=== PATIENT | female | born 1935 | race Caucasian/White ===

== ENCOUNTER 2016-12-01 22:24 | Emergency (ER) | payer OTHER ==
[~2016-12-01] VITALS: Ht 154.9 cm; Wt 53.0 kg
[~2016-12-01 22:24] MED LIST: ATEN50TA PO; LEVE500T26 PO
[2016-12-01 22:29] VITALS: Ht 154.9 cm; Wt 53.0 kg
[2016-12-01] MEDS ORDERED: LEVE500T13 PO (23:01)
[2016-12-01] MEDS ORDERED: CIPR1TAB11 PO (23:03)
[2016-12-01 23:45] LABS: HEMATOCRIT 35.3 % (37-47); MEAN CELL VOLUME 94.9 fL (80-100); MEAN CORPUSCULAR HGB CONC 33.7 g/dl (32-36); MEAN PLATELET VOLUME 9.3 fL (7.4-10.4); PLATELET COUNT 112 K/uL (130-400); RED BLOOD COUNT 3.72 M/uL (4.2-5.4); WHITE BLOOD COUNT 7.36 K/uL (4.8-10.8)
[2016-12-01 23:46] VITALS: TEMP 37.3
[2016-12-02 00:02] LABS: PROTHROMBIN TIME (PATIENT) 10.8 SECONDS (9.0-12.0)
[2016-12-02 00:10] LABS: ALT/SGPT 41 U/L (12-78); BLOOD UREA NITROGEN 28 mg/dl (7-18); BUN/CREATININE RATIO 18.3 (10-20); CALCIUM 8.3 mg/dl (8.5-10.1); CARBON DIOXIDE 25 mmol/L (21-32); CHLORIDE 104 mmol/L (98-107); GLUCOSE 97 mg/dl (70-99); POTASSIUM 3.6 mmol/L (3.5-5.1); SODIUM 137 mmol/L (136-145)
[2016-12-02 00:19] LABS: ALKALINE PHOSPHATASE 83 U/L (45-117); AST/SGOT 68 U/L (15-37)
[2016-12-02 00:19] LABS: MANUAL MICROSCOPIC REQUIRED? YES; REVIEW REQ? NO; SULFASALICYLIC ACID NEG (NEG); URINE APPEARANCE CLEAR (CLEAR); URINE COLOR RED-ORANGE; URINE SPECIFIC GRAVITY 1.026 (1.000-1.030)
[2016-12-02] MEDS ORDERED: SODIUM CHLORIDE 0.9% 500ML 500 ML IV STA (00:22)
[2016-12-02 00:25] LABS: URINE BACTERIA NEG (NEG); URINE WBC >30 /hpf (0-5); ZZURINE CULT IF INDIC CATH YES
[2016-12-02] MEDS ORDERED: CEFTRIAXONE SOD INJ 1 GM ADDVIAL IV STA (00:39)
[2016-12-02] MEDS ORDERED: CEPH500C2 PO (01:15)
--- NOTE | 2016-12-02 01:16 | EMERGENCY ROOM VISIT NOTE ---
History Report prepared by Genoveva: Jacqueline Wallace Under the Supervision of: Dr. Kevin Brewster M.D. First contact with patient: 22:54 Chief Complaint: FEVER Stated Complaint: FEVER, CHEST TIGHTNESS History of Present Illness The patient is an 81 year old female who presents to the Emergency Room with complaints of an episode of a fever starting this evening. Per the patient's daughter, the patient was complaining of left hip pain, but she notes that she has had problems with the hip before. The daughter states that they took her to [place] [facility] yesterday who stated her hip was fine and believed she has a UTI. She states that they never took a urine sample from the patient because she couldn' t give one. The daughter reports that she called her PCP this evening who put her on Cipro to treat her UTI. The daughter states that she has taken 2 doses of this. She reports that she noticed the patient starting to develop a fever and increased confusion, so she called the PCP again. She reports that the PCP told them to come in. The patient complains of chills, shortness of breath, and walking with a tilt. The patient denies falls, rashes, and the use of blood thinners. The daughter notes that the patient had a history of Dementia and lives with 24 hour care available. Source of History: patient, family Onset: this evening Position: other (global) Quality: other (global) Timing: other (episode) Associated Symptoms: + chills, + SOB, No rash Note: The patient complains of increased confusion and walking with a tilt. The patient denies falls and the use of blood thinners. Review of Systems See HPI for pertinent positives & negatives. A total of 10 systems reviewed and were otherwise negative. Past Medical & Surgical Medical Problems: (1) Dementia Family History No pertinent family history Social History Smoking Status: Never Smoker Drug Use: none Housing Status: assisted living Occupation Status: retired Current/Historical Medications Scheduled Alendronate Sodium (Fosamax), 70 MG PO WK Ascorbic Acid (Vitamin C), 1,000 MG PO DAILY Aspirin (Aspirin Ec), 81 MG PO DAILY Cephalexin Monohydrate (Keflex), 500 MG PO TID Ciprofloxacin Tab (Cipro), 250 MG PO BID Cranberry (Vaccinium Macrocarp (Cranberry), 300 MGPE PO DAILY Cyanocobalamin (Vitamin B-12), 500 MCG PO DAILY Donepezil Hydrochloride (Aricept), 10 MG PO HS Levetiracetam (Keppra), 500 MG PO BID Levothyroxine Sodium (Levothyroxine Sodium), 50 MCG PO QAM Losartan Potassium (Cozaar), 50 MG PO DAILY Memantine (Namenda), 10 MG PO DAILY Multivitamin (Multivitamin), 1 TAB PO DAILY Sertraline (Zoloft), 25 MG PO DAILY Simvastatin (Zocor), 10 MG PO HS Vitamin E (E-400), 400 UNITS PO DAILY Allergies Coded Allergies: Latex (Verified Allergy, Unknown, Unknown, 12/01/16) Source -Medication list Physical Exam Vital Signs Date Time Temp Pulse Resp B/P (MAP) Pulse Ox O2 Delivery O2 Flow Rate FiO2 12/02/16 01:49 76 16 138/65 99 12/02/16 00:55 69 16 140/54 96 Room Air 12/01/16 23:46 37.3 12/01/16 23:31 70 12/01/16 22:29 36.6 83 18 125/73 92 Room Air Physical Exam GENERAL: Patient is well appearing elderly female and in no acute distress. Weak and warm to touch. HEENT: No acute trauma, normocephalic atraumatic, mucous membranes moist, no nasal congestion, no scleral icterus. NECK: No stridor, no adenopathy, no meningismus, trachea is midline. LUNGS: No dyspnea. Clear to auscultation and equal bilaterally. No wheeze, no rhonchi. HEART: Regular rate and rhythm. No murmurs, rubs, gallops appreciated. ABDOMEN: Soft, nontender, bowel sounds positive, no masses appreciated, no peritonitis. BACK: No midline tenderness, no CVA tenderness EXTREMITIES: Normal motion all extremities, no cyanosis, no edema. NEUROLOGIC: Demented, confused (daughter notes confusion is acute change from yesterday), no acute motor or sensory deficits, no focal weakness, cranial nerves grossly intact. SKIN: No rash, no jaundice, no diaphoresis. Medical Decision & Procedures ER Provider Diagnostic Interpretation: X ray results are stated below per my interpretation: Chest: 1 view: No infiltrate, no effusion, normal cardiac border. Pelvic: 1 view: No fracture. No dislocation. Mild osteoporosis. no large effusions appreciated. Laboratory Results 12/01/16 23:30 Red Blood Count 3.72, Mean Corpuscular Volume 94.9, Mean Corpuscular Hemoglobin 32.0, Mean Corpuscular Hemoglobin Concent 33.7, Mean Platelet Volume 9.3 12/01/16 23:30 Test 12/01/16 23:30 12/01/16 23:37 12/01/16 23:45 White Blood Count 7.36 K/uL (4.8-10.8) Red Blood Count 3.72 M/uL (4.2-5.4) Hemoglobin 11.9 g/dL (12.0-16.0) Hematocrit 35.3 % (37-47) Mean Corpuscular Volume 94.9 fL (80-100) Mean Corpuscular Hemoglobin 32.0 pg (25-34) Mean Corpuscular Hemoglobin Concent 33.7 g/dl (32-36) Platelet Count 112 K/uL (130-400) Mean Platelet Volume 9.3 fL (7.4-10.4) RDW Standard Deviation 42.3 fL (36.4-46.3) RDW Coefficient of Variation 12.3 % (11.5-14.5) Neutrophils % (Manual) 27.0 % Lymphocytes % (Manual) 27.0 % Variant Lymphocytes % (manual) 41.6 % Monocytes % (Manual) 3.5 % Eosinophils % (Manual) 0.9 % Neutrophils # (Manual) 1.99 K/uL (1.4-6.5) Total Absolute Neutrophils 1.99 K/uL (1.4-6.5) Lymphocytes # (Manual) 1.99 K/uL (1.2-3.4) Absolute Variant Lymphocytes 3.06 K/uL Total Absolute Lymphocytes 5.05 K/uL (1.2-3.4) Monocytes # (Manual) 0.26 K/uL (0.11-0.59) Eosinophils # (Manual) 0.07 K/uL (0-0.5) Toxic Vacuolation 1+ Prothrombin Time 10.8 SECONDS (9.0-12.0) Prothromb Time International Ratio 1.0 (0.9-1.1) Anion Gap 8.0 mmol/L (3-11) Est Creatinine Clear Calc Drug Dose 21.4 ml/min Estimated GFR () 37.0 Estimated GFR (Non- 31.9 BUN/Creatinine Ratio 18.3 (10-20) Calcium Level 8.3 mg/dl (8.5-10.1) Magnesium Level 2.0 mg/dl (1.8-2.4) Total Bilirubin 0.2 mg/dl (0.2-1) Direct Bilirubin 0.1 mg/dl (0-0.2) Aspartate Amino Transf (AST/SGOT) 68 U/L (15-37) Alanine Aminotransferase (ALT/SGPT) 41 U/L (12-78) Alkaline Phosphatase 83 U/L (45-117) Total Creatine Kinase 106 U/L (26-192) Creatine Kinase MB 1.1 ng/ml (0.5-3.6) Creatine Kinase MB Ratio 1.0 (0-3.0) Troponin I < 0.015 ng/ml (0-0.045) Total Protein 6.7 gm/dl (6.4-8.2) Albumin 2.9 gm/dl (3.4-5.0) Chemistry Specimen Hemolysis Bedside Lactic Acid Venous 1.11 mmol/L (0.90-1.70) Urine Color RED-ORANGE Urine Appearance CLEAR (CLEAR) Urine pH (4.5-7.5) Urine Specific [place] 1.026 (1.000-1.030) Urine Protein NEG (NEG) Urine Glucose (UA) (NEG) Urine Ketones (NEG) Urine Occult Blood (NEG) Urine Nitrite (NEG) Urine Bilirubin (NEG) Urine Urobilinogen (NEG) Urine Leukocyte Esterase (NEG) Urine RBC 5-10 /hpf (0-4) Urine WBC >30 /hpf (0-5) Urine Epithelial Cells 20-30 /lpf (0-5) Urine Bacteria NEG (NEG) Laboratory results as reviewed by me. Medications Administered Medications (Trade) Dose Ordered Sig/Leslie Route Start Time Stop Time Status Last Admin Dose Admin Sodium Chloride 500 ml @ 999 mls/hr Q31M STAT IV 12/02/16 00:22 12/02/16 00:52 DC 12/02/16 00:22 999 MLS/HR Ceftriaxone Sodium (Rocephin Inj) 1 gm NOW STAT IV 12/02/16 00:39 12/02/16 00:40 DC 12/02/16 00:39 1 GM ECG Indication: weakness Rate (beats per minute): 72 Rhythm: normal sinus Findings: no acute ischemic change, no ectopy ED Course 2254: The patient was evaluated in room C4. A complete history and physical exam was performed. 0022: Ordered NSS 500 ml @ 999 mls/hr IV. 0038: I reevaluated the patient. The family is agreeable to IV fluids and awaiting the urine report. They still feel comfortable bringing her home. 0039: Ordered Rocephin Inj 1 gm IV. 0013: Reevaluated the patient. She is much more awake and interactive. The daughter states this is similar to baseline. Discussed results and discharge instructions: They verbalized understanding and agreement. The patient is ready for discharge. Medical Decision Differential: Sepsis, Infectious (UTI/Pneumonia/Meningitis/etc), Metabolic/ Electrolyte Abnormality, Cardiac, Hepatic, Endocrine, Toxicologic, Neurologic, amongst other pathologies entertained. 81 yr old pleasantly demented patient arrives with family after she was more confused today along with fever and concern for UTI. Already empirically started Cipro as outpatient. CXR clear. Pelvis unremarkable (reportedly left hip pain yesterday now gone). EKG unremarkable as is normal trop. Labs consistent with some mild dehydration, thus 500mL NSS given as family admits that they do have trouble keeping her hydrated. After fluids she is much more awake, interactive and in no distress. Questionable UTI via cath thus I feel it is reasonable treating abx. I feel that cipro may not be best choice given renal function and some confusion thus we will switch to Keflex. Family feels very comfortable taking her home and would prefer her note being admitted at this time. As return to baseline with fluids, no history head injury, no neuro deficits, family agrees with holding off on CT head currently. Family well aware they can return at any time if worsening or other concerns. Advised PCP follow up for recheck. Medication Reconcilliation Current Medication List: was personally reviewed by me Blood Pressure Screening Patient's blood pressure: Normal blood pressure Impression Primary Impression: Fever Additional Impressions: Urinary tract infection Dehydration Renal insufficiency, mild Scribe Attestation The scribe's documentation has been prepared under my direction and personally reviewed by me in its entirety. I confirm that the note above accurately reflects all work, treatment, procedures, and medical decision making performed by me. Departure Information Dispostion Home / Self-Care Prescriptions Cephalexin Monohydrate (KEFLEX) 500 Mg Cap 500 MG PO TID, #15 CAP Prov: Kevin Brewster M.D. 12/02/16 Referrals Andrea Arriola PA-C (PCP) Forms HOME CARE DOCUMENTATION FORM, IMPORTANT VISIT INFORMATION Patient Instructions My [facility] Additional Instructions Make sure Amy is keeping well hydrated and eating regularly. Follow up with PCP in 1 week for repeat check of her Creatinine (Kidney function ) Return or call 911 if worsening confusion, vomiting, or other concerning symptoms. Use Tylenol as needed for fevers. Stop the Cipro and we will start Keflex. Problem Qualifiers
[2016-12-02 01:46] LABS: EOSINOPHIL % 0.9 %; LYMPH ABS # 1.99 K/uL (1.2-3.4); VACUOLIZATION 1+; VARIANT LYM ABS # 3.06 K/uL; VARIANT LYMPHOCYTE % 41.6 %
[2016-12-02 01:49] VITALS: BP 138/65; PULSE 76; O2SAT 99
--- NOTE | 2016-12-02 06:44 | DIAGNOSTIC IMAGING REPORT ---
PELVIS 1 OR 2 VIEW ROUTINE CLINICAL HISTORY: Left hip pain. COMPARISON STUDY: No previous studies for comparison. FINDINGS: Sacroiliac joints and symphysis pubis are intact. There is no acute fracture within the pelvis or the hips. There is mild joint space narrowing and osteophytosis of both hips. IMPRESSION: 1. No acute fracture within the pelvis or hips. 2. Mild osteoarthritis of the hips. Electronically signed by: Mikhail Tellez M.D. 12/02/2016 6:43 AM Dictated Date/Time: 12/02/2016 6:42 AM
--- NOTE | 2016-12-02 06:46 | DIAGNOSTIC IMAGING REPORT ---
CHEST ONE VIEW PORTABLE CLINICAL HISTORY: Fever. COMPARISON STUDY: Chest radiograph April 08, 2013. FINDINGS: Lung volumes are normal. No pneumothorax or pleural effusion is present. Mild left basilar opacity favors atelectasis. Borderline cardiomegaly is noted. There is no evidence of pulmonary edema. IMPRESSION: 1. No acute cardiopulmonary findings. 2. Mild left basilar opacity which favors atelectasis. Electronically signed by: Mikhail Tellez M.D. 12/02/2016 6:45 AM Dictated Date/Time: 12/02/2016 6:43 AM
[2016-12-02 13:59] LABS: COMPLETE YES
== END 2016-12-02 01:50 | disposition home or self-care (01) ==
LOC: C.EDB 22:26 → C.EDC 12-02 01:50
DX: N39.0 Urinary tract infection, site not specified (principal); E86.0 Dehydration; N28.9 Disorder of kidney and ureter, unspecified; F03.90 Unspecified dementia, unspecified severity, without behavioral disturbance, psychotic disturbance, mood disturbance, and anxiety; Z79.82 Long term (current) use of aspirin; Z79.899 Other long term (current) drug therapy

== ENCOUNTER 2017-01-09 10:12 | Emergency (ER) | payer OTHER ==
[~2017-01-09] VITALS: Ht 157.5 cm; Wt 64.8 kg
[~2017-01-09 10:12] MED LIST changes: -ATEN50TA PO; +CEPH500C2 PO; +CIPR1TAB11 PO; +LEVE500T13 PO; -LEVE500T26 PO
[2017-01-09 10:22] VITALS: TEMP 36.7; Ht 157.5 cm; Wt 64.8 kg
[2017-01-09] MEDS ORDERED: GLUC10007 PO (10:39)
[2017-01-09] MEDS ORDERED: LEVE500T PO (10:39)
[2017-01-09] MEDS ORDERED: SODIUM CHLORIDE 0.9% 500ML 500 ML IV STA (10:56)
[2017-01-09] MEDS ORDERED: LEVETIRACETAM IV 1,000 MG in DEXTROSE 5% 100ML 100 ML IV ONE (11:00)
--- NOTE | 2017-01-09 11:00 | EMERGENCY ROOM VISIT NOTE ---
History Report prepared by Genoveva: Jai Chapman Under the Supervision of: Dr. Fan Thomas M.D. First contact with patient: 10:38 Chief Complaint: SEIZURE Stated Complaint: SEIZURE Nursing Triage Summary: pt arrives via EMS who reports pt had a seizure this AM nurse witnessed , pt with HX of dementia pt currently awake History of Present Illness The patient is an 81 year old white female with a past medical history of dementia, HTN, HLD, UTI, and seizures who presents to the ED with a cc of a resolved seizure occurring a little after 0900 that lasted around 5 minutes. Positive shakiness, vomiting, leg pain, sweating, and recent stressors. Negative decreased sleep. The patient is on seizure medications. The patient has had a UTI recently, and has some sores and rashes and is on medications. Also, the patient has had a recent foot trauma when stubbing her toe. Source of History: patient Onset: a little after 0900 Position: other (global) Quality: other (seizure) Timing: resolved Associated Symptoms: + vomiting Review of Systems See HPI for pertinent positives and negatives. A total of ten systems were reviewed and were otherwise negative. Past Medical & Surgical Medical Problems: (1) Dementia (2) HLD (hyperlipidemia) (3) HTN (hypertension) (4) UTI (urinary tract infection) Family History No pertinent family history Social History Smoking Status: Never Smoker Drug Use: none Housing Status: assisted living Occupation Status: retired Current/Historical Medications Scheduled Alendronate Sodium (Fosamax), 70 MG PO WK Ascorbic Acid (Vitamin C), 1,000 MG PO DAILY Aspirin (Aspirin Ec), 81 MG PO DAILY Cranberry (Vaccinium Macrocarp (Cranberry), 300 MGPE PO DAILY Cyanocobalamin (Vitamin B-12), 500 MCG PO DAILY Donepezil Hydrochloride (Aricept), 10 MG PO HS Glucosamine Sulfate (Glucosamine), 1,000 MG PO DAILY Levetiractam (Levetiracetam), 500 MG PO BID Levothyroxine Sodium (Levothyroxine Sodium), 50 MCG PO QAM Linezolid (Zyvox), 600 MG PO BID Losartan Potassium (Cozaar), 50 MG PO DAILY Memantine (Namenda), 10 MG PO DAILY Multivitamin (Multivitamin), 1 TAB PO DAILY Sertraline (Zoloft), 25 MG PO DAILY Simvastatin (Zocor), 10 MG PO HS Vitamin E (E-400), 400 UNITS PO DAILY Allergies Coded Allergies: Latex (Verified Allergy, Unknown, Unknown, 12/01/16) Source -Medication list Physical Exam Vital Signs Date Time Temp Pulse Resp B/P (MAP) Pulse Ox O2 Delivery O2 Flow Rate FiO2 01/09/17 13:34 78 01/09/17 12:41 70 18 191/66 98 Room Air 01/09/17 10:22 36.7 75 18 142/61 96 Room Air 01/09/17 10:20 63 Physical Exam GENERAL: AAOx3, well-appearing, NAD HENT: Normocephalic, atraumatic. EYES: Normal conjunctiva. Sclera non-icteric. NECK: Supple. No nuchal rigidity. FROM. RESPIRATORY: CTAB, no rhonchi, wheezing, crackles CARDIAC: RRR, no MRG ABDOMEN: Soft, NTND, BS+ MSK: No chest wall TTP, no LE edema. Does have swelling over the right foot with mild calor and erythema. NEURO: GCS 14, eyes open to voice, follows commands CN 2-12 intact, moves all 4s on command. Good finger to nose. No dysmetria. No sensory deficits. SKIN: Left lateral buttocks superficial wound. No cellulitic changes. No purulence. No rash or jaundice noted. Medical Decision & Procedures ER Provider Diagnostic Interpretation: Radiology results as stated below per my review and radiologist interpretation: CT SCAN OF THE BRAIN WITHOUT IV CONTRAST CLINICAL HISTORY: Change in mental status. COMPARISON STUDY: CT of the brain dated 04/08/2013. TECHNIQUE: Unenhanced axial CT scan of the brain is performed from the vertex to the skull base. CT DOSE: 537.48 mGy.cm FINDINGS: Brain parenchyma: There are age-related involutional changes noting mild subcortical and periventricular microangiopathic change. There is no hemorrhage, mass effect, or evidence of acute territorial ischemia by CT criteria. Moise-white matter is preserved. No extra-axial fluid collection is seen. Ventricles, sulci, cisterns: Prominent secondary to involutional change. Intracranial vasculature: There is atherosclerotic calcification of the cavernous carotid and vertebral arteries. Calvarium: Unremarkable. Sinuses and mastoids: The visualized paranasal sinuses are clear. The mastoid air cells are well pneumatized. Orbits: The bony orbits are grossly intact. There has been banding of a left ocular globe. Bilateral ocular lens implants are noted. IMPRESSION: There is no hemorrhage, mass effect, or evidence of acute territorial ischemia by CT criteria. Electronically signed by: Aleksandr Marr M.D. 01/09/2017 11:14 AM Dictated Date/Time: 01/09/2017 11:12 AM SINGLE VIEW CHEST CLINICAL HISTORY: Generalized weakness. FINDINGS: An AP, portable, upright chest radiograph is compared to study dated 12/01/2016. The examination is degraded by portable technique and patient rotation. The cardiomediastinal silhouette is unremarkable. There is atherosclerotic calcification of the thoracic aorta. Chronic interstitial thickening is similar to previous. There is minimal bibasilar atelectasis. The lungs and pleural spaces are otherwise clear. No pneumothorax is seen. The skeletal structures are osteopenic. The bony thorax is grossly intact. IMPRESSION: No active disease in the chest. Electronically signed by: Aleksandr Marr M.D. 01/09/2017 11:11 AM Dictated Date/Time: 01/09/2017 11:11 AM Laboratory Results 01/09/17 09:36 Red Blood Count 4.18, Mean Corpuscular Volume 95.2, Mean Corpuscular Hemoglobin 32.3, Mean Corpuscular Hemoglobin Concent 33.9, Mean Platelet Volume 9.6, Neutrophils (%) (Auto) 44.6, Lymphocytes (%) (Auto) 39.4, Monocytes (%) (Auto) 11.0, Eosinophils (%) (Auto) 4.1, Basophils (%) (Auto) 0.8, Neutrophils # (Auto ) 3.16, Lymphocytes # (Auto) 2.79, Monocytes # (Auto) 0.78, Eosinophils # (Auto ) 0.29, Basophils # (Auto) 0.06 01/09/17 09:36 Test 01/09/17 09:36 01/09/17 12:15 White Blood Count 7.09 K/uL (4.8-10.8) Red Blood Count 4.18 M/uL (4.2-5.4) Hemoglobin 13.5 g/dL (12.0-16.0) Hematocrit 39.8 % (37-47) Mean Corpuscular Volume 95.2 fL (80-100) Mean Corpuscular Hemoglobin 32.3 pg (25-34) Mean Corpuscular Hemoglobin Concent 33.9 g/dl (32-36) Platelet Count 198 K/uL (130-400) Mean Platelet Volume 9.6 fL (7.4-10.4) Neutrophils (%) (Auto) 44.6 % Lymphocytes (%) (Auto) 39.4 % Monocytes (%) (Auto) 11.0 % Eosinophils (%) (Auto) 4.1 % Basophils (%) (Auto) 0.8 % Neutrophils # (Auto) 3.16 K/uL (1.4-6.5) Lymphocytes # (Auto) 2.79 K/uL (1.2-3.4) Monocytes # (Auto) 0.78 K/uL (0.11-0.59) Eosinophils # (Auto) 0.29 K/uL (0-0.5) Basophils # (Auto) 0.06 K/uL (0-0.2) RDW Standard Deviation 46.7 fL (36.4-46.3) RDW Coefficient of Variation 13.5 % (11.5-14.5) Immature Granulocyte % (Auto) 0.1 % Immature Granulocyte # (Auto) 0.01 K/uL (0.00-0.02) Prothrombin Time 10.1 SECONDS (9.0-12.0) Prothromb Time International Ratio 0.9 (0.9-1.1) Activated Partial Thromboplast Time 25.4 SECONDS (21.0-31.0) Partial Thromboplastin Ratio 1.0 Anion Gap 7.0 mmol/L (3-11) Est Creatinine Clear Calc Drug Dose 29.0 ml/min Estimated GFR () 43.9 Estimated GFR (Non- 37.9 BUN/Creatinine Ratio 14.2 (10-20) Calcium Level 9.1 mg/dl (8.5-10.1) Magnesium Level 2.3 mg/dl (1.8-2.4) Total Bilirubin 0.6 mg/dl (0.2-1) Direct Bilirubin 0.2 mg/dl (0-0.2) Aspartate Amino Transf (AST/SGOT) 23 U/L (15-37) Alanine Aminotransferase (ALT/SGPT) 24 U/L (12-78) Alkaline Phosphatase 71 U/L (45-117) Troponin I < 0.015 ng/ml (0-0.045) Total Protein 8.0 gm/dl (6.4-8.2) Albumin 3.7 gm/dl (3.4-5.0) Lipase 288 U/L (73-393) Thyroid Stimulating Hormone (TSH) 4.650 uIu/ml (0.300-4.500) Urine Color YELLOW Urine Appearance CLEAR (CLEAR) Urine pH 7.5 (4.5-7.5) Urine Specific [place] 1.017 (1.000-1.030) Urine Protein NEG (NEG) Urine Glucose (UA) NEG (NEG) Urine Ketones NEG (NEG) Urine Occult Blood NEG (NEG) Urine Nitrite NEG (NEG) Urine Bilirubin NEG (NEG) Urine Urobilinogen NEG (NEG) Urine Leukocyte Esterase TRACE (NEG) Urine WBC (Auto) 1-5 /hpf (0-5) Urine RBC (Auto) 0-4 /hpf (0-4) Urine Hyaline Casts (Auto) 1-5 /lpf (0-5) Urine Epithelial Cells (Auto) 10-20 /lpf (0-5) Urine Bacteria (Auto) NEG (NEG) Laboratory results reviewed by me Medications Administered Medications (Trade) Dose Ordered Sig/Leslie Route Start Time Stop Time Status Last Admin Dose Admin Sodium Chloride 500 ml @ 999 mls/hr Q31M STAT IV 01/09/17 10:56 01/09/17 11:26 DC 01/09/17 10:56 999 MLS/HR Levetiracetam 1000 mg/Dextrose 110 ml @ 440 mls/hr ONE ONCE IV 01/09/17 11:00 01/09/17 11:14 DC 01/09/17 11:20 440 MLS/HR Vancomycin HCl 1000 mg/Sodium Chloride 270 ml @ 125 mls/hr NOW STAT IV 01/09/17 12:04 01/09/17 14:13 DC 01/09/17 12:42 125 MLS/HR ECG Indication: other (seizure) Rate (beats per minute): 61 Rhythm: normal sinus Findings: 1st degree AV block, other (QRS and QTC are within normal limits. No STS changes or TWI) ED Course 1038: The patient was evaluated in room B8. A complete history and physical exam was performed. 1236: I reevaluated the patient, ans she was doing well. 1410: I reevaluated the patient. Discussed results and discharge instructions: She verbalized understanding and agreement. The patient is ready for discharge. Medical Decision The patient is an 81 year old white female with a past medical history of dementia, HTN, HLD, UTI, and seizures who presents to the ED with a cc of a resolved seizure occurring a little after 0900. Positive shakiness, vomiting, leg pain, sweating, and recent stressors. Negative decreased sleep. The patient is on seizure medications. The patient has had a UTI recently, and has some sores and rashes and is on medications. Also, the patient has had a recent foot trauma when stubbing her toe. Triage Nursing notes reviewed. The patient's presentation and history were concerning for etiologies such as metabolic, infection, hypo/hyperglycemia, electrolyte abnormalities, cardiac sources, intracerebral event, toxicologic, neurologic, as well as others were entertained. Patient was seen and evaluated the bedside. Patient with a GCS of 14 no obvious trauma. I did speak with the witness of the seizure-like episode. Unsure as to whether the patient was conscious as she very soon so that she was okay. Patient does take Keppra secondary to a history of seizures initially in 2013. She has not seen a neurologist in quite some time. Patient's blood work fairly unremarkable. There was a recent stress as her family Recently . Patient has been getting good sleep. She is have a left-sided superficial wound to the left hip. Patient also noted to have some right foot cellulitis with trace swelling. I did get a call and they faxed report concerning for staph epidermidis that was resistant to multiple by mouth medications. Patient was given vancomycin. I did discuss with pharmacy stated the patient could take Zyvox by mouth. I then spoke with case management who was extremely helpful in obtaining a prior authorization and furthermore having the pharmacy ordered by mouth medications to the patient to take the medication at home. I then spoke with the family and explained all of this. Patient was very well-appearing signs stable without any acute neuro deficits. No witnessed seizures here. UA was negative. Patient family are given strict follow-up, discharge, and return cautions. Patient agreed with plan of care patient was safely discharged home. Head Trauma GCS Score: 14 Medication Reconcilliation Current Medication List: was personally reviewed by me Blood Pressure Screening Patient's blood pressure: Elevated blood pressure Blood pressure disposition: Elevated BP felt to be situational Impression Primary Impression: Staphylococcus epidermidis infection Additional Impressions: Cellulitis Seizure Cellulitis of foot Scribe Attestation The scribe's documentation has been prepared under my direction and personally reviewed by me in its entirety. I confirm that the note above accurately reflects all work, treatment, procedures, and medical decision making performed by me. Departure Information Dispostion Home / Self-Care Prescriptions Linezolid (Zyvox) 600 Mg Tab 600 MG PO BID for 14 Days, #28 TAB Prov: Fan Thomas M.D. 01/09/17 Referrals Andrea Arriola PA-C (PCP) Dakota Sevilal M.D. Forms HOME CARE DOCUMENTATION FORM, IMPORTANT VISIT INFORMATION Patient Instructions Cellulitis Dc, ED Seizure Recurrent, [facility] Additional Instructions Please return to the emergency department if you have worsening or recurrent symptoms not amenable to at-home treatment. Please call for a follow-up appointment with her primary care physician. Please take your medications as prescribed. If you have other concerns and/or complaints please feel free to also call your primary care physician's office or return the ED for further evaluation, management, and treatment. Please call the neurologists office for further management of seizure disorder and medications. You have been examined and treated today on an emergency basis only. This is not a substitute for, or an effort to provide, complete comprehensive medical care. It is impossible to recognize and treat all injuries or illnesses in a single emergency department visit. It is therefore important that you follow up closely with [facility]. Call as soon as possible for an appointment. Thank you for your time and consideration. I look forward to speaking with you again soon. Please don't hesitate to call us if you have any questions. Problem Qualifiers Additional Impressions: Cellulitis Site of cellulitis: buttock Qualified Codes: L03.317 - Cellulitis of buttock
--- NOTE | 2017-01-09 11:13 | DIAGNOSTIC IMAGING REPORT ---
SINGLE VIEW CHEST CLINICAL HISTORY: Generalized weakness. FINDINGS: An AP, portable, upright chest radiograph is compared to study dated 12/01/2016. The examination is degraded by portable technique and patient rotation. The cardiomediastinal silhouette is unremarkable. There is atherosclerotic calcification of the thoracic aorta. Chronic interstitial thickening is similar to previous. There is minimal bibasilar atelectasis. The lungs and pleural spaces are otherwise clear. No pneumothorax is seen. The skeletal structures are osteopenic. The bony thorax is grossly intact. IMPRESSION: No active disease in the chest. Electronically signed by: Aleksandr Marr M.D. 01/09/2017 11:11 AM Dictated Date/Time: 01/09/2017 11:11 AM
--- NOTE | 2017-01-09 11:15 | DIAGNOSTIC IMAGING REPORT ---
CT SCAN OF THE BRAIN WITHOUT IV CONTRAST CLINICAL HISTORY: Change in mental status. COMPARISON STUDY: CT of the brain dated 04/08/2013. TECHNIQUE: Unenhanced axial CT scan of the brain is performed from the vertex to the skull base. CT DOSE: 537.48 mGy.cm FINDINGS: Brain parenchyma: There are age-related involutional changes noting mild subcortical and periventricular microangiopathic change. There is no hemorrhage, mass effect, or evidence of acute territorial ischemia by CT criteria. Moise-white matter is preserved. No extra-axial fluid collection is seen. Ventricles, sulci, cisterns: Prominent secondary to involutional change. Intracranial vasculature: There is atherosclerotic calcification of the cavernous carotid and vertebral arteries. Calvarium: Unremarkable. Sinuses and mastoids: The visualized paranasal sinuses are clear. The mastoid air cells are well pneumatized. Orbits: The bony orbits are grossly intact. There has been banding of a left ocular globe. Bilateral ocular lens implants are noted. IMPRESSION: There is no hemorrhage, mass effect, or evidence of acute territorial ischemia by CT criteria. Electronically signed by: Aleksandr Marr M.D. 01/09/2017 11:14 AM Dictated Date/Time: 01/09/2017 11:12 AM
[2017-01-09 11:16] LABS: BASO % 0.8 %; BASO ABS # 0.06 K/uL (0-0.2); COMPLETE YES; EOS % 4.1 %; HEMATOCRIT 39.8 % (37-47); IG% 0.1 %; LYMPH % 39.4 %; LYMPH ABS # 2.79 K/uL (1.2-3.4); MEAN CELL VOLUME 95.2 fL (80-100); MEAN CORPUSCULAR HEMOGLOBIN 32.3 pg (25-34); MEAN CORPUSCULAR HGB CONC 33.9 g/dl (32-36); MEAN PLATELET VOLUME 9.6 fL (7.4-10.4); NEUT % 44.6 %; PLATELET COUNT 198 K/uL (130-400); RED BLOOD COUNT 4.18 M/uL (4.2-5.4); WHITE BLOOD COUNT 7.09 K/uL (4.8-10.8)
[2017-01-09 11:23] LABS: ALT/SGPT 24 U/L (12-78); AST/SGOT 23 U/L (15-37); BLOOD UREA NITROGEN 18 mg/dl (7-18); BUN/CREATININE RATIO 14.2 (10-20); CALCIUM 9.1 mg/dl (8.5-10.1); CARBON DIOXIDE 30 mmol/L (21-32); CHLORIDE 105 mmol/L (98-107); GLUCOSE 87 mg/dl (70-99); MAGNESIUM 2.3 mg/dl (1.8-2.4); POTASSIUM 3.7 mmol/L (3.5-5.1); SODIUM 142 mmol/L (136-145)
[2017-01-09 11:24] LABS: INR 0.9 (0.9-1.1); PROTHROMBIN TIME (PATIENT) 10.1 SECONDS (9.0-12.0)
[2017-01-09 11:35] LABS: ALKALINE PHOSPHATASE 71 U/L (45-117)
[2017-01-09] MEDS ORDERED: VANCOMYCIN INJ 1,000 MG in SODIUM CHLORIDE 0.9% 250ML 250 ML IV STA (12:04)
[2017-01-09 12:35] LABS: URINE APPEARANCE CLEAR (CLEAR); URINE BILIRUBIN NEG (NEG); URINE COLOR YELLOW; URINE NITRITE NEG (NEG); URINE PH 7.5 (4.5-7.5); URINE SPECIFIC GRAVITY 1.017 (1.000-1.030); UROBILINOGEN NEG (NEG)
[2017-01-09 12:37] LABS: MANUAL MICROSCOPIC REQUIRED? NO; REVIEW REQ? NO
[2017-01-09] MEDS ORDERED: LINE1TAB6 PO (13:54)
[2017-01-09 15:04] VITALS: BP 163/60; PULSE 74; O2SAT 97
[2017-01-09] MEDS ORDERED: SIMV10TA5 PO (18:34)
[2017-01-09] MEDS ORDERED: LEVO50TA6 PO (18:34)
[2017-01-09] MEDS ORDERED: DONE10TA12 PO (18:34)
[2017-01-09] MEDS ORDERED: ALEN70TA4 PO (18:34)
[2017-01-09] MEDS ORDERED: ASCO10003 PO (23:01)
[2017-01-09] MEDS ORDERED: MULT-506 PO (23:01)
[2017-01-09] MEDS ORDERED: ASPI81TA28 PO (23:01)
[2017-01-09] MEDS ORDERED: SERT25TA PO (23:01)
[2017-01-09] MEDS ORDERED: VITACAP37 PO (23:01)
[2017-01-09] MEDS ORDERED: CYAN500T PO (23:01)
[2017-01-09] MEDS ORDERED: LOSA50TA6 PO (23:01)
[2017-01-09] MEDS ORDERED: CRAN1TAB9 PO (23:01)
[2017-01-09] MEDS ORDERED: NMN10 PO (23:01)
== END 2017-01-09 15:12 | disposition home or self-care (01) ==
LOC: EDBD 10:12 → C.EDB 10:13
DX: R56.9 Unspecified convulsions (principal); L03.115 Cellulitis of right lower limb; B95.7 Other staphylococcus as the cause of diseases classified elsewhere; F03.90 Unspecified dementia, unspecified severity, without behavioral disturbance, psychotic disturbance, mood disturbance, and anxiety; I10 Essential (primary) hypertension; E78.5 Hyperlipidemia, unspecified; Z87.440 Personal history of urinary (tract) infections; Z79.82 Long term (current) use of aspirin; Z79.899 Other long term (current) drug therapy